=== PATIENT | female | born 1950 | race African-American/Black ===

== ENCOUNTER 2018-09-22 08:40 | Inpatient (IN) ==
[2018-09-22] MEDS ORDERED: ALBUTEROL/IPRATROPIUM 3 ML NEB RESP TX STA (09:01)
[2018-09-22 10:18] LABS: Basophils % 0.2 % (0.0-0.8); Eosinophils % 0.1 % (0.00-10.9); Hematocrit 33.3 VOL% (35.7-47.0); Hemoglobin 11.2 GM/DL (12.0-16.0); Immature Granulocytes % 0.4 %; Immature Granulocytes Absolute 0.04 #; Lymphocytes # 0.6 10*3/uL (1.4-4.0); Lymphocytes % 5.5 % (21.3-54.2); Mean Corpuscular HGB Conc 33.6 GM/DL (32-36); Mean Corpuscular Hemoglobin 28 PG (27-34); Mean Corpuscular Volume 83.5 FL (87-102); Mean Platelet Volume 9.9 FL (9.6-12.0); Monocytes # 0.6 10*3/uL (0.11-0.8); Neutrophils # 8.7 10*3/uL (1.4-7.4); Neutrophils % 87.8 % (38.7-73.9); Platelet Count 336 T/CUMM (130-400); Red Blood Count 3.99 MC/CUMM (3.8-5.5); Red Cell Distribution Width 14.8 % (9.3-17.3); White Blood Count 9.9 T/CUMM (4-12)
[2018-09-22 10:22] LABS: PT Patient Result 10.6 SECS
[2018-09-22 10:42] LABS: Albumin 3.4 G/DL (3.4-5.0); Bilirubin,Total 0.6 MG/DL (0.2-1.0); Osmolality,Calculated 271.1 MOS/KG (273-304); Potassium 3.9 MMOL/L (3.5-5.1); Total Protein 7.1 G/DL (6.4-8.3)
[2018-09-22 12:44] LABS: ABG Base Excess 4.4 MMOL/L (-2.5-2.5); ABG HCO3 28.4 MMOL/L (20-26); ABG Oxygen Saturation 99.1 % (95-100); ABG PCO2 47.1 MM HG (35-48); ABG TCO2 26.7 MMOL/L (23-27)
[2018-09-22] MEDS ORDERED: ALBUTEROL 2.5 MG/3 ML NEB RESP TX PRN (12:59)
[2018-09-22] MEDS ORDERED: methylPREDNISolone SOD SUC 125 MG/2 ML VIAL IV STA (13:10)
[2018-09-22] MEDS: LEVALBUTEROL 1.25 MG/3 ML NEB RESP TX SCH ×3 (13:20→20:04)
[2018-09-22] MEDS ORDERED: BISACODYL 5 MG TABLET PO PRN (13:56)
[2018-09-22] MEDS ORDERED: DEXTROSE 50% 25 GM/50 ML SYRINGE IV PRN (13:56)
[2018-09-22] MEDS ORDERED: GLUCAGON 1 MG VIAL IM PRN (13:56)
[2018-09-22] MEDS ORDERED: guaiFENesin 200 MG/10 ML UDCUP PO PRN (13:56)
[2018-09-22] MEDS ORDERED: ACETAMINOPHEN 325 MG TABLET PO PRN (13:56)
[2018-09-22] MEDS ORDERED: ALUMINUM/MAGNES/SIMETH MAX STR 30 ML UDCUP PO PRN (13:56)
[2018-09-22] MEDS ORDERED: BISACODYL 10 MG SUPP RECTAL PRN (13:56)
[2018-09-22] MEDS: ENOXAPARIN 40 MG/0.4 ML SYRINGE SUBCUT SCH (14:40)
[2018-09-22] MEDS: PIPERACILLIN/TAZOBACTAM 3,375 MG in SODIUM CHLORIDE 0.9% 100 ML IV SCH ×2 (14:41→22:51)
[2018-09-22] MEDS ORDERED: ALBUTEROL 2.5 MG/3 ML NEB RESP TX SCH ×2 (15:00)
[2018-09-22 15:44] LABS: Apearance,Urine CLEAR (Clear); Bilirubin,Urine Negative (Negative); Blood, Urine Small mg/dL (Negative); Glucose,Urine (UA) Negative (Negative); Ketones,Urine 20 mg/dL (Negative); Mucus,Urine Occasional /LPF (Occasional); Nitrite,Urine Negative (Negative); Protein,Urine Negative; RBC,Urine 6 /HPF (0-4); Squamous Epithelial Cell,Urine Occasional /HPF (0-10); Urine Color Yellow (Yellow); Urine Specific Gravity > 1.060 (1.001-1.035); Urine Urobilinogen < 2.0 EU/DL (0.2-1.0); WBC,Urine 1 /HPF (0-6)
[2018-09-22] MEDS: BRIMONIDINE/TIMOLOL OPH SOLN 5 ML BOTTLE BOTH EYES SCH (21:21)
[2018-09-22] MEDS: LATANOPROST 0.005% OPH SOLN 2.5 ML BOTTLE BOTH EYES SCH (21:21)
[2018-09-22] MEDS: BUDESONIDE/FORMOTEROL 160-4.5 INHALER 6 GM INH SCH (21:21)
[2018-09-22] MEDS: DOCUSATE SODIUM 100 MG CAPSULE PO SCH (21:21)
[2018-09-22] MEDS: MULTIVITAMIN (INTRINSIC) CAPSULE PO SCH (21:22)
[2018-09-22] MEDS: methylPREDNISolone SOD SUC 40 MG/1 ML VIAL IV SCH (21:27)
[2018-09-23] MEDS: LEVALBUTEROL 1.25 MG/3 ML NEB RESP TX SCH ×7 (00:18→23:47)
[2018-09-23] MEDS: methylPREDNISolone SOD SUC 40 MG/1 ML VIAL IV SCH ×3 (04:43→21:04)
[2018-09-23 04:49] LABS: Basophils % 0.1 % (0.0-0.8); Hematocrit 30.8 VOL% (35.7-47.0); Hemoglobin 10.4 GM/DL (12.0-16.0); Immature Granulocytes % 0.5 %; Immature Granulocytes Absolute 0.05 #; Lymphocytes # 0.5 10*3/uL (1.4-4.0); Lymphocytes % 4.6 % (21.3-54.2); Mean Corpuscular HGB Conc 33.8 GM/DL (32-36); Mean Corpuscular Hemoglobin 28 PG (27-34); Mean Corpuscular Volume 83.2 FL (87-102); Mean Platelet Volume 9.6 FL (9.6-12.0); Monocytes # 0.2 10*3/uL (0.11-0.8); Monocytes % 1.9 % (1.7-12.7); Neutrophils # 9.3 10*3/uL (1.4-7.4); Neutrophils % 92.9 % (38.7-73.9); Platelet Count 280 T/CUMM (130-400); Red Cell Distribution Width 14.9 % (9.3-17.3)
[2018-09-23 05:09] LABS: Calcium 8.6 MG/DL (8.5-10.1); Osmolality,Calculated 284.3 MOS/KG (273-304)
[2018-09-23] MEDS: PIPERACILLIN/TAZOBACTAM 3,375 MG in SODIUM CHLORIDE 0.9% 100 ML IV SCH ×3 (06:17→21:07)
[2018-09-23 06:46] LABS: Lymphocytes 7 % (20-55); Platelet Estimate Adequate; Segmented Neutrophils 91 % (50-85); Total Cells Counted 100
[2018-09-23 06:47] LABS: Hypochromasia 1+
[2018-09-23] MEDS: ASCORBIC ACID 500 MG TABLET PO SCH (08:03)
[2018-09-23] MEDS: VITAMIN E 400 UNIT CAPSULE PO SCH (08:03)
[2018-09-23] MEDS: PANTOPRAZOLE 40 MG TABLET PO SCH (08:03)
[2018-09-23] MEDS: MAGNESIUM OXIDE 400 MG TABLET PO SCH (08:03)
[2018-09-23] MEDS: ASPIRIN EC 81 MG TABLET PO SCH (08:03)
[2018-09-23] MEDS: DOCUSATE SODIUM 100 MG CAPSULE PO SCH ×2 (08:04→21:17)
[2018-09-23] MEDS: MULTIVITAMIN (INTRINSIC) CAPSULE PO SCH ×2 (08:04→21:05)
[2018-09-23] MEDS: BRIMONIDINE/TIMOLOL OPH SOLN 5 ML BOTTLE BOTH EYES SCH ×2 (08:14→21:05)
[2018-09-23] MEDS: BUDESONIDE/FORMOTEROL 160-4.5 INHALER 6 GM INH SCH ×2 (08:14→21:03)
[2018-09-23] MEDS: ALBUTEROL/IPRATROPIUM 3 ML NEB RESP TX SCH ×2 (10:07→10:08)
[2018-09-23] MEDS: ENOXAPARIN 40 MG/0.4 ML SYRINGE SUBCUT SCH (13:36)
[2018-09-24] MEDS: LATANOPROST 0.005% OPH SOLN 2.5 ML BOTTLE BOTH EYES SCH ×2 (02:56→23:07)
[2018-09-24] MEDS: LEVALBUTEROL 1.25 MG/3 ML NEB RESP TX SCH ×6 (03:07→23:52)
[2018-09-24] MEDS: methylPREDNISolone SOD SUC 40 MG/1 ML VIAL IV SCH ×3 (04:10→21:05)
[2018-09-24] MEDS: MAGNESIUM OXIDE 400 MG TABLET PO SCH (08:28)
[2018-09-24] MEDS: ASPIRIN EC 81 MG TABLET PO SCH (08:28)
[2018-09-24] MEDS: PIPERACILLIN/TAZOBACTAM 3,375 MG in SODIUM CHLORIDE 0.9% 100 ML IV SCH ×3 (08:28→21:05)
[2018-09-24] MEDS: DOCUSATE SODIUM 100 MG CAPSULE PO SCH ×2 (08:28→21:04)
[2018-09-24] MEDS: PANTOPRAZOLE 40 MG TABLET PO SCH (08:28)
[2018-09-24] MEDS: ASCORBIC ACID 500 MG TABLET PO SCH (08:28)
[2018-09-24] MEDS: VITAMIN E 400 UNIT CAPSULE PO SCH (08:28)
[2018-09-24] MEDS: MULTIVITAMIN (INTRINSIC) CAPSULE PO SCH ×2 (08:28→21:04)
[2018-09-24] MEDS: BUDESONIDE/FORMOTEROL 160-4.5 INHALER 6 GM INH SCH ×2 (08:29→21:05)
[2018-09-24] MEDS: BRIMONIDINE/TIMOLOL OPH SOLN 5 ML BOTTLE BOTH EYES SCH ×2 (08:29→23:07)
[2018-09-24] MEDS: ENOXAPARIN 40 MG/0.4 ML SYRINGE SUBCUT SCH (12:17)
[2018-09-24] MEDS: BENZONATATE 100 MG CAPSULE PO PRN ×2 (17:45→21:04)
[2018-09-25] MEDS: LEVALBUTEROL 1.25 MG/3 ML NEB RESP TX SCH ×4 (03:43→14:01)
[2018-09-25] MEDS: methylPREDNISolone SOD SUC 40 MG/1 ML VIAL IV SCH ×3 (04:47→20:46)
[2018-09-25] MEDS: PIPERACILLIN/TAZOBACTAM 3,375 MG in SODIUM CHLORIDE 0.9% 100 ML IV SCH ×3 (05:55→23:04)
[2018-09-25] MEDS: BRIMONIDINE/TIMOLOL OPH SOLN 5 ML BOTTLE BOTH EYES SCH ×2 (08:39→20:49)
[2018-09-25] MEDS: ASCORBIC ACID 500 MG TABLET PO SCH (08:40)
[2018-09-25] MEDS: MULTIVITAMIN (INTRINSIC) CAPSULE PO SCH ×2 (08:40→20:49)
[2018-09-25] MEDS: DOCUSATE SODIUM 100 MG CAPSULE PO SCH ×2 (08:40→20:49)
[2018-09-25] MEDS: MAGNESIUM OXIDE 400 MG TABLET PO SCH (08:40)
[2018-09-25] MEDS: VITAMIN E 400 UNIT CAPSULE PO SCH (08:40)
[2018-09-25] MEDS: ASPIRIN EC 81 MG TABLET PO SCH (08:40)
[2018-09-25] MEDS: BUDESONIDE/FORMOTEROL 160-4.5 INHALER 6 GM INH SCH ×2 (08:40→20:46)
[2018-09-25] MEDS: PANTOPRAZOLE 40 MG TABLET PO SCH (08:40)
[2018-09-25] MEDS: BENZONATATE 100 MG CAPSULE PO PRN ×2 (09:50→20:49)
[2018-09-25] MEDS: ENOXAPARIN 40 MG/0.4 ML SYRINGE SUBCUT SCH (12:54)
[2018-09-25] MEDS: ALBUTEROL/IPRATROPIUM 3 ML NEB RESP TX SCH (19:07)
[2018-09-25] MEDS: LATANOPROST 0.005% OPH SOLN 2.5 ML BOTTLE BOTH EYES SCH (23:03)
[2018-09-26] MEDS: methylPREDNISolone SOD SUC 40 MG/1 ML VIAL IV SCH ×3 (05:34→18:10)
[2018-09-26] MEDS: PIPERACILLIN/TAZOBACTAM 3,375 MG in SODIUM CHLORIDE 0.9% 100 ML IV SCH ×3 (05:34→22:27)
[2018-09-26] MEDS: ALBUTEROL/IPRATROPIUM 3 ML NEB RESP TX SCH ×4 (07:45→20:52)
[2018-09-26] MEDS: MAGNESIUM OXIDE 400 MG TABLET PO SCH (08:25)
[2018-09-26] MEDS: DOCUSATE SODIUM 100 MG CAPSULE PO SCH ×2 (08:25→22:27)
[2018-09-26] MEDS: ASCORBIC ACID 500 MG TABLET PO SCH (08:25)
[2018-09-26] MEDS: ASPIRIN EC 81 MG TABLET PO SCH (08:25)
[2018-09-26] MEDS: MULTIVITAMIN (INTRINSIC) CAPSULE PO SCH ×2 (08:25→22:27)
[2018-09-26] MEDS: VITAMIN E 400 UNIT CAPSULE PO SCH (08:25)
[2018-09-26] MEDS: PANTOPRAZOLE 40 MG TABLET PO SCH (08:25)
[2018-09-26] MEDS: BRIMONIDINE/TIMOLOL OPH SOLN 5 ML BOTTLE BOTH EYES SCH ×2 (08:26→22:27)
[2018-09-26] MEDS: BUDESONIDE/FORMOTEROL 160-4.5 INHALER 6 GM INH SCH ×2 (08:26→22:27)
[2018-09-26] MEDS: BENZONATATE 100 MG CAPSULE PO PRN (08:35)
[2018-09-26] MEDS: ENOXAPARIN 40 MG/0.4 ML SYRINGE SUBCUT SCH (14:07)
[2018-09-26] MEDS: LATANOPROST 0.005% OPH SOLN 2.5 ML BOTTLE BOTH EYES SCH (22:27)
[2018-09-27] MEDS: ALBUTEROL/IPRATROPIUM 3 ML NEB RESP TX SCH ×4 (01:05→19:45)
[2018-09-27] MEDS: methylPREDNISolone SOD SUC 40 MG/1 ML VIAL IV SCH (05:28)
[2018-09-27] MEDS: PIPERACILLIN/TAZOBACTAM 3,375 MG in SODIUM CHLORIDE 0.9% 100 ML IV SCH ×3 (05:30→22:13)
[2018-09-27] MEDS: MAGNESIUM OXIDE 400 MG TABLET PO SCH (08:52)
[2018-09-27] MEDS: PANTOPRAZOLE 40 MG TABLET PO SCH (08:52)
[2018-09-27] MEDS: VITAMIN E 400 UNIT CAPSULE PO SCH (08:52)
[2018-09-27] MEDS: ASCORBIC ACID 500 MG TABLET PO SCH (08:52)
[2018-09-27] MEDS: DOCUSATE SODIUM 100 MG CAPSULE PO SCH ×2 (08:53→20:25)
[2018-09-27] MEDS: BRIMONIDINE/TIMOLOL OPH SOLN 5 ML BOTTLE BOTH EYES SCH ×2 (08:53→20:31)
[2018-09-27] MEDS: BUDESONIDE/FORMOTEROL 160-4.5 INHALER 6 GM INH SCH ×2 (08:53→20:31)
[2018-09-27] MEDS: ASPIRIN EC 81 MG TABLET PO SCH (08:53)
[2018-09-27] MEDS: MULTIVITAMIN (INTRINSIC) CAPSULE PO SCH ×2 (08:53→20:25)
[2018-09-27] MEDS: predniSONE 20 MG TABLET PO SCH ×2 (11:39→20:25)
[2018-09-27] MEDS: ENOXAPARIN 40 MG/0.4 ML SYRINGE SUBCUT SCH (13:45)
[2018-09-27] MEDS: BENZONATATE 100 MG CAPSULE PO PRN (19:40)
[2018-09-27] MEDS: SULFAMETHOX/TRIMETHOPRIM 800-160 MG TABLET PO SCH (20:25)
[2018-09-27] MEDS: LATANOPROST 0.005% OPH SOLN 2.5 ML BOTTLE BOTH EYES SCH (20:31)
[2018-09-28] MEDS: ALBUTEROL/IPRATROPIUM 3 ML NEB RESP TX SCH ×3 (00:21→14:00)
[2018-09-28] MEDS: PIPERACILLIN/TAZOBACTAM 3,375 MG in SODIUM CHLORIDE 0.9% 100 ML IV SCH ×2 (05:25→14:46)
[2018-09-28] MEDS: SULFAMETHOX/TRIMETHOPRIM 800-160 MG TABLET PO SCH (09:44)
[2018-09-28] MEDS: MAGNESIUM OXIDE 400 MG TABLET PO SCH (09:44)
[2018-09-28] MEDS: ASCORBIC ACID 500 MG TABLET PO SCH (09:45)
[2018-09-28] MEDS: VITAMIN E 400 UNIT CAPSULE PO SCH (09:45)
[2018-09-28] MEDS: DOCUSATE SODIUM 100 MG CAPSULE PO SCH (09:45)
[2018-09-28] MEDS: predniSONE 20 MG TABLET PO SCH (09:46)
[2018-09-28] MEDS: MULTIVITAMIN (INTRINSIC) CAPSULE PO SCH (09:46)
[2018-09-28] MEDS: PANTOPRAZOLE 40 MG TABLET PO SCH (09:46)
[2018-09-28] MEDS: BRIMONIDINE/TIMOLOL OPH SOLN 5 ML BOTTLE BOTH EYES SCH (09:46)
[2018-09-28] MEDS: ASPIRIN EC 81 MG TABLET PO SCH (09:46)
[2018-09-28] MEDS: BUDESONIDE/FORMOTEROL 160-4.5 INHALER 6 GM INH SCH (09:47)
[2018-09-28] MEDS: ENOXAPARIN 40 MG/0.4 ML SYRINGE SUBCUT SCH (14:45)
[2018-09-28 16:09] VITALS: BP 156/87
== END 2018-09-28 18:48 | disposition home health service (06) | DRG 189 ==
LOC: N.ED 08:40 → N.EDINP 13:03 → SUATTDRO 13:03 → N.CC 13:36 → N.5E 09-23 15:52
PROVIDERS: ADMIT Internal Medicine; ATTEND Internal Medicine